=== PATIENT | female | born 1985 | race Hispanic/Latino ===

== ENCOUNTER 2020-11-14 23:15 | Emergency (ER) | payer OTHER | END 2020-11-15 02:33 | disposition home or self-care (01) | LOC: EDH 23:15 | DX: B34.9 Viral infection, unspecified (principal); Z20.828 Contact with and (suspected) exposure to other viral communicable diseases | CPT/HCPCS: 71045; 87426; 87804; 87880 ==

== ENCOUNTER 2024-04-19 12:43 | Emergency (ER) | payer OTHER ==
[~2024-04-19] VITALS: Ht 167.6 cm; Wt 159.7 kg
[2024-04-19] MEDS: IBUPROFEN 800 MG TAB PO ONE (13:09)
[2024-04-19 13:15] VITALS: BP 141/98; PULSE 90; RESP 16; O2SAT 97
== END 2024-04-19 13:18 | disposition home or self-care (01) ==
LOC: EDH 12:43
DX: T23.061A Burn of unspecified degree of back of right hand, initial encounter (principal); X08.8XXA Exposure to other specified smoke, fire and flames, initial encounter; Y93.89 Activity, other specified; Y92.89 Other specified places as the place of occurrence of the external cause; Y99.8 Other external cause status
CPT/HCPCS: 99282